=== PATIENT | male | born 1940 | race Caucasian/White ===

== ENCOUNTER 2019-11-18 14:31 | Observation (INO) | payer MEDICARE, SELFPAY ==
[2019-11-18] VITALS (10 sets, daily range): BP systolic 68–145; BP diastolic 54–85; PULSE 55–68; RESP 12–18; TEMP 36.4–37.1; O2SAT 96–100; BMI 31.5
--- NOTE | ~2019-11-18 | US_ITS ---
EXAMINATION: US carotid duplex BI DATE: 11/19/2019 08:07 INDICATION: Transient alteration of awareness. Cerebral atherosclerosis. TECHNIQUE: Grayscale, color Doppler, and pulsed Doppler images of the cervical carotid arteries were obtained. The degree of vessel stenosis is placed in one of the following categories: normal, <50%, 5 0-69%, >=70% but less than near-occlusion, near-occlusion, or total occlusion. Note that percent sten osis relative to normal distal artery lumen diameter is indirectly measured from velocity measurement s as described by Kennedy, et al. Radiology 2003; 229:340-346. COMPARISON: None. FINDINGS: RIGHT: The right common carotid artery (CCA) peak systolic velocity (PSV) is 87 cm/s. The right internal car otid artery (ICA) PSV is 67 cm/s. The right ICA end-diastolic velocity (EDV) is 22 cm/s. The right IC A/CCA PSV ratio is 0.8. Grayscale and color Doppler images and straight no appreciable stenosis or pl aque in the ICA. The external carotid artery (ECA) PSV is 113 cm/s. There is antegrade flow in the ri ght vertebral artery. LEFT: The left CCA PSV is 75 cm/s. The left ICA PSV is 85 cm/s. The left ICA EDV is 31 cm/s. The left ICA/C CA PSV ratio is 1.1. Grayscale and color Doppler images yield an estimate of <50% diameter reduction from plaque in the ICA. The ECA PSV is 90 cm/s. There is antegrade flow in the left vertebral artery. IMPRESSION: 1. No evident plaque or stenosis in the right internal carotid artery. 2. <50% stenosis in the left internal carotid artery. Reviewed, dictated and finalized at location A.
--- NOTE | ~2019-11-18 | CT_ITS ---
EXAMINATION: CT brain wo con INDICATION: Transient alteration of awareness, Parkinson's COMPARISON: None TECHNIQUE: Standard unenhanced head CT. The dose-length product (DLP) was 681.00 mGy-cm. The mA was a djusted according to patient size. Iterative reconstruction technique was employed. FINDINGS: There is no acute intraparenchymal hemorrhage. No evidence of mass lesion. No evidence of a cute infarction. Subtle, small areas of low attenuation in the bilateral basal ganglia may reflect pr ior infarction. There is mild periventricular and subcortical hypodensity probably related to small v essel ischemic disease. There is mild prominence of the sulci and ventricles related to cerebral atro phy. Intracranial calcified cerebral atherosclerosis is noted. There are no extra-axial collections. There is no mass effect or midline shift. The orbits and soft tissues are unremarkable. The visualiz ed sinuses and mastoid air cells are well aerated. IMPRESSION: 1. No acute intracranial abnormality. 2. Age related findings. Reviewed, dictated and finalized at location A.
--- NOTE | 2019-11-18 14:44 | ECG_ITS ---
Measurements Intervals [facility] Rate: 57 P: 11 OR: 151 QRS: -60 QRSD: 110 T: 26 QT: 388 QTc: 378 Interpretive Statements SINUS BRADYCARDIA LEFT AXIS DEVIATION INTRAVENTRICULAR CONDUCTION DELAY LEFT ANTERIOR FASCICULAR BLOCK BORDERLINE T WAVE ABNORMALITY- INF/LAT LEADS BASELINE ARTIFACT- I, II, III, AVR, AVL ABNORMAL ECG Electronically Signed On 11-18-2019 15:13:56 CDT by Jc Berumen D.O.
[2019-11-18 15:06] LABS: Basophils Percent Auto 0.3 % (0.2-1.2); Eosinophils Absolute Auto 0.1 K/mm3 (0-0.3); Eosinophils Percent Auto 1.9 % (0-4.4); Hematocrit 43.6 % (42.0-52.0); Hemoglobin 14.4 g/dL (14.0-18.0); Immature Granulocyte Absolute 0.04 K/mm3 (0.00-0.031); Immature Granulocyte Percent A 0.5 % (0-0.5); Lymphocytes Absolute Auto 1.38 K/mm3 (0.9-3.2); Lymphocytes Percent Auto 18.9 % (18.3-44.2); Mean Corpuscular Hemoglobin 31.4 pg (26-34); Mean Platelet Volume 9.3 fl (7.4-10.4); Monocytes Absolute Auto 0.9 K/mm3 (0.1-0.6); Monocytes Percent Auto 12.3 % (2.6-8.5); Neutrophils Absolute Auto 4.8 K/mm3 (1.3-6.7); Neutrophils Percent Auto 66.1 % (45.5-73.1); Platelet Count Result 201 k/mm3 (150-375); Red Blood Count 4.59 M/mm3 (4.6-6.20); Red Cell Distribution Width 13.6 % (11.5-14.5); White Blood Count 7.3 K/mm3 (4.5-10.0)
[2019-11-18 15:17] LABS: Blood Urea Nitrogen 18 mg/dL (9-20); Calcium 9.3 mg/dL (8.4-10.2); Carbon Dioxide 25 mmol/L (22-30); Chloride 100 mmol/L (98-107); Estimated CRCL calculation 49 ml/min; Estimated Glomerular Filt Rate 58; Glucose 130 mg/dL (75-110); Potassium 4.2 mmol/L (3.4-5.0); Sodium 133 mmol/L (137-145)
--- NOTE | 2019-11-18 16:15 | ED.SYNCOPE ---
HPI - Syncope General Chief Complaint: Syncope Stated Complaint: syncope Time Seen by Provider: 11/18/19 15:51 History of Present Illness HPI narrative: Patient presents via EMS and his for syncope at home. She was cutting his hair in a chair while they were watching TV, and he kept dropping his head and slumping over. She told him to hold his head up and sit up straight, but he slumped over and remained there. He says he woke up to EMS over him. There was no injury. No one needed to do CPR. He has Parkinson's and is getting more severe. He is having trouble walking and drags his feet. They tried increasing his levodopa from 6 times a day to 8 times a day and it did not seem to help. She usually has them on the treadmill for 10 minutes several times a week. He usually walks at the store, but he is less able to do so. He also has trouble sleeping and breaks his sleep cycle into several segments. His appetite is good. She denies that he has any depression. He denies any hallucinations or delusions. MD complaint: loss of consciousness Onset (ago): minute(s) -: minutes(s) Prodromal symptoms: none Witnessed: Yes - by Bystander Context: at rest Injuries sustained associated with event: none Current symptoms: none History: other (Parkinson's disease, orthostatic hypotension) Treatments prior to arrival: none Related Data Home Medications Medication Instructions Recorded Confirmed allopurinol 100 mg tablet 200 mg PO BID 05/25/19 carbidopa 25 mg-levodopa 100 mg 2 tablet PO TID 05/25/19 tablet ezetimibe 10 mg tablet 10 mg PO DAILY 05/25/19 omega-3 fatty acids 1,000 mg 1,000 mg PO DAILY 05/25/19 capsule timolol maleate 0.5 % eye gel 2 drop EACH EYE DAILY ml 05/25/19 forming solution travoprost 0.004 % eye drops 1 drop EACH EYE QPM 05/25/19 cholecalciferol (vitamin D3) 125 mcg PO DAILY 11/18/19 Allergies Allergy/AdvReac Type Severity Reaction Status Date / Time No Known Allergies Allergy Verified 05/25/19 14:25 Review of Systems Review of Systems: Narrative: CONSTITUTIONAL: Denies fever, chills, or sweats. EYES: Denies visual changes, redness, or discharge. ENT: Denies rhinorrhea, congestion, sore throat, or otalgia. CARDIOVASCULAR: Denies chest pain, palpitations, or edema. RESPIRATORY: Denies cough or dyspnea. GASTROINTESTINAL: Denies abdominal pain, nausea, vomiting, or diarrhea. GENITOURINARY: Denies dysuria or hematuria. SKIN: Denies rash or itching. MUSCULOSKELETAL: Denies back pain, joint pain, or myalgia. NEUROLOGIC: Denies headache, numbness, but has generalized weakness. Trouble sleeping. PSYCHIATRIC: Denies anxiety or depression. [facility] Past Medical History Medical History (Updated 11/18/19 @ 18:14 by Edith Sebastian MD) Autonomic orthostatic hypotension Bradycardia Mixed hyperlipidemia Parkinson disease Stage 3 chronic kidney disease Syncope and collapse Surgical History Surgical History (Updated 11/18/19 @ 16:21 by Edith Sebastian MD) Status post left foot surgery Social History Social History Smoking status: Never smoker Alcohol intake: never Exam Narrative: Exam Narrative: GENERAL: Well-appearing, well-nourished, and in no acute distress. Flat affect and no spontaneous motion. HEAD: Normocephalic, atraumatic. EYES: PERRLA and EOMI. ENT: Nares clear, no rhinorrhea or epistaxis. Mucous membranes moist. NECK: Supple. CHEST: Clear to auscultation. No respiratory distress. HEART: Regular rate and rhythm. No murmur heard. Normal peripheral pulses. ABDOMEN: Soft, nontender, nondistended, normal active bowel sounds. EXTREMITIES: Normal range of motion. Slight edema. SKIN: Warm, dry, no rash. NEURO: No focal deficits. Alert and oriented x3. PSYCH: Lets his do almost all the talking. Course Reevaluation(s) Reevaluation #1: Went in to talk to the patient and his . I told him that Dr. Gutierrez will consult i
[2019-11-18 16:57] LABS: Add Urine Microscopic? YES; Appearance Urine Clear (Clear); Bilirubin Urine Negative (Negative); Blood Urine Negative (Negative); Color Urine Yellow (Yellow); Glucose Urine UA Negative (Negative); Ketones Urine Trace mg/dL (Negative); Leukocyte Esterase Ur Negative LEU/UL (Negative); Mucus Urine Rare /lpf; Nitrate Urine Negative (Negative); Protein Urine Negative (Negative); RBC Urine 0-2 /hpf (0-2); Specific Grav Ur 1.016 (1.001-1.035); Urobilinogen Urine Negative mg/dL (<2.0); WBC Urine 0-3 /hpf
[2019-11-18 17:43] LABS: NT Pro B Type Natriuretic Pept 183 PG/ML (5-100); Troponin I < 0.012 ng/mL (0.000-0.034)
[2019-11-18] MEDS: CARBIDOPA/LEVODOPA 12.5/50 MG 1 TABLET, CARBIDOPA/LEVODOPA 25/100 MG 1 TABLET 2 TABLET PO (19:39)
[2019-11-18 20:14] LABS: Troponin I < 0.012 ng/mL (0.000-0.034)
--- NOTE | 2019-11-18 22:52 | ADMGEN ---
This patient, Zhang Mccullough, was admitted to [facility] Surg Room 312-01. Patient/family oriented to hospital policies and general routines including ID bracelet, bed and alarms, visiting hours, pain management, procedures, bathroom and other care routines, personal items, smoking policy, room service/diet, and visiting hours. Valuables list has been completed. Information on how to activate the Rapid Response Team has been discussed. Patient/Family are encouraged to report perceived risks to care and to ask questions if they do not understand what they are told or what they should do.
[2019-11-18 23:56] LABS: Troponin I < 0.012 ng/mL (0.000-0.034)
--- NOTE | 2019-11-19 02:31 | PM.IMHP ---
H&P: HPI History of Present Illness Chief complaint: syncope and parkinson's Narrative: This is an 79 year old male with known Parkinson's disease and previous episodes of syncope who passed out yesterday at home while his was cutting his hair. The patient remembers that his was cutting his hair and he suddenly passed out. He woke up to find EMS standing over him. He denies any chest pain or shortness of breath prior to passing out and his did not report any seizure like activity. He does not know how long he was unconscious for. He denies any loss of urine. He does report recent worsening of his Parkinson's symptoms. On my encounter with the patient myesha he has no complaints. He currently denies any headache, fevers, chills, shortness of breath, cough, chest pain, abdominal pain, dysuria, hematuria, rashes, nausea, vomiting, diarrhea or rectal bleeding. He reports that they have attempted to adjust his Parkinson's medications although he continues to have significant resting tremor and difficulty initiating movements and walking without shuffling. ER provider has consulted Neurology. Routine labs and CT brain were unremarkable in the ER. Review of Systems Review of Systems: All systems reviewed & are unremarkable except as noted in HPI and below PMFSH Past Medical History Medical History Autonomic orthostatic hypotension Bradycardia Mixed hyperlipidemia Parkinson disease Stage 3 chronic kidney disease Syncope and collapse Surgical History Surgical History Status post left foot surgery Family History Family History Mother Family history of chronic obstructive pulmonary disease Father Family history of lung cancer Patient's father is Sibling Family history of type 2 diabetes mellitus Social History Social History Smoking status: Never smoker Alcohol intake: never Substance use: never Gender identity (if verbalized by the patient): Male Spiritual care concerns: No Meds Home Medications and Allergies Home Medications Medication Instructions Recorded Confirmed Type allopurinol 100 mg tablet 200 mg PO DAILY 05/25/19 11/18/19 History carbidopa 25 mg-levodopa 100 mg 2 tablet PO TID 05/25/19 11/18/19 History tablet ezetimibe 10 mg tablet 10 mg PO HS 05/25/19 11/18/19 History omega-3 fatty acids 1,000 mg 1,000 mg PO DAILY 05/25/19 11/18/19 History capsule timolol maleate 0.5 % eye gel 2 drop LEFTEYE DAILY ml 05/25/19 11/18/19 History forming solution travoprost 0.004 % eye drops 1 drop LEFTEYE QPM 05/25/19 11/18/19 History cholecalciferol (vitamin D3) 125 mcg PO DAILY 11/18/19 11/18/19 History Allergies Allergy/AdvReac Type Severity Reaction Status Date / Time No Known Allergies Allergy Verified 05/25/19 14:25 Vital Signs Vital Signs - 24 hr 11/18/19 14:32 11/18/19 14:45 11/18/19 15:27 Temperature 37.1 C Pulse Rate 60 56 L 56 L Respiratory Rate 12 Blood Pressure 102/62 119/71 Pulse Oximetry 96 11/18/19 15:29 11/18/19 15:33 11/18/19 17:52 Temperature Pulse Rate 55 L 68 60 Respiratory Rate 16 Blood Pressure 107/68 68/54 L 125/85 Pulse Oximetry 99 11/18/19 18:54 11/18/19 19:54 11/18/19 21:07 Temperature 36.7 C 36.7 C Pulse Rate 68 68 68 Respiratory Rate 12 16 16 Blood Pressure 119/75 127/82 127/82 Pulse Oximetry 99 96 96 11/18/19 21:10 Temperature 36.4 C Pulse Rate 60 Respiratory Rate 18 Blood Pressure 145/72 H Pulse Oximetry 100 Exam Const: General: cooperative, alert, awake and other (Visibile resting tremor++ ) Nutritional Appearance: well nourished Orientation/consciousness: patient oriented x3 HENMT: Head: normal to inspection General nose exam: Normal external nose prese
[2019-11-19 02:32] LABS: Troponin I < 0.012 ng/mL (0.000-0.034)
--- NOTE | 2019-11-19 02:44 | ECHO_ITS ---
Patient Info Name: Zhang Mccullough Age: 79 years : 1940 Gender: Male Ht: 68 in Wt: 207 lbs BSA: 2.15 m2 HR: 68 bpm BP: 146 / 72 mmHg Technical Quality: Fair Exam Date: 11/19/2019 8:38 AM Exam Location: [facility] Exam Room: 312 Patient Status: Outpatient Admit Date: 11/18/2019 Staff Ordering Physician: Dangelo Lang MD Tile Molder Hand: Marcia Masters RDCS Attending Provider: Ben Sherman PA-C Referring Physician: Precious MORALES; Exam Type: CA echo doppler color flow Study Info Indications - SYNCOPE Complete two-dimensional, color flow and Doppler transthoracic echocardiogram is performed. Summary 1. Left ventricular chamber dimension is normal. 2. Left ventricular systolic function is normal, estimated at 60-65%. 3. The left ventricular diastolic function is grade I diastolic dysfunction. 4. E/e' 9 is minimally elevated. 5. There is mild aortic valve sclerosis. 6. There is mild aortic valve regurgitation. 7. No pulmonary hypertension, estimated pulmonary arterial systolic pressure is 29 mmHg. Left Ventricle E/e' 9 is minimally elevated. Left ventricular chamber dimension is normal. Left ventricular systolic function is normal, estimated at 60-65%. The left ventricular diastolic function is grade I diastolic dysfunction. Right Ventricle Right ventricular chamber dimension is normal. Right ventricular systolic function is normal. Left Atria Left atrial chamber dimension is normal. Right Atria Right atrial chamber dimension is normal. Aortic Valve The aortic valve is trileaflet. There is mild aortic valve sclerosis. There is no aortic valve stenosis. There is mild aortic valve regurgitation. Pulmonic Valve There is no pulmonic regurgitation. Mitral Valve There is no mitral valve stenosis. There is no mitral valve regurgitation. Tricuspid Valve There is no tricuspid valve regurgitation. No pulmonary hypertension, estimated pulmonary arterial systolic pressure is 29 mmHg. Pericardium/Pleural There is no pericardial effusion. Aorta The aortic root size at the sinus of Valsalva is normal. Left Ventricular Outflow Tract Name Value Normal LVOT 2D LVOT Diameter 2.1 cm LVOT Doppler LVOT Peak Gradient 3 mmHg LVOT Mean Gradient 2 mmHg LVOT VTI 21 cm LVOT VTI/AV VTI Ratio 0.7 LVOT Stroke Volume 75 ml LVOT CO 14.5 l/min LVOT CI 6.7 l/min/m2 Pulmonic Valve Name Value Normal PV Doppler PV Peak Gradient 2 mmHg Mitral Valve Name Value Normal
[2019-11-19 04:00] VITALS: PULSE 64
[2019-11-19 06:00] VITALS: BP 133/74; PULSE 57; RESP 16; TEMP 36.7; O2SAT 98
[2019-11-19 06:26] LABS: Basophils Percent Auto 0.3 % (0.2-1.2); Eosinophils Absolute Auto 0.2 K/mm3 (0-0.3); Eosinophils Percent Auto 2.3 % (0-4.4); Hematocrit 43.7 % (42.0-52.0); Hemoglobin 14.4 g/dL (14.0-18.0); Immature Granulocyte Absolute 0.02 K/mm3 (0.00-0.031); Immature Granulocyte Percent A 0.3 % (0-0.5); Lymphocytes Absolute Auto 1.75 K/mm3 (0.9-3.2); Lymphocytes Percent Auto 23.7 % (18.3-44.2); Mean Corpuscular Hemoglobin 31.2 pg (26-34); Mean Corpuscular Volume 94.8 fl (80-100); Mean Platelet Volume 9.7 fl (7.4-10.4); Monocytes Absolute Auto 1.1 K/mm3 (0.1-0.6); Monocytes Percent Auto 15.3 % (2.6-8.5); Neutrophils Absolute Auto 4.3 K/mm3 (1.3-6.7); Neutrophils Percent Auto 58.1 % (45.5-73.1); Platelet Count Result 210 k/mm3 (150-375); Red Blood Count 4.61 M/mm3 (4.6-6.20); Red Cell Distribution Width 13.6 % (11.5-14.5); White Blood Count 7.4 K/mm3 (4.5-10.0)
[2019-11-19 06:37] LABS: Blood Urea Nitrogen 18 mg/dL (9-20); Calcium 9.1 mg/dL (8.4-10.2); Carbon Dioxide 26 mmol/L (22-30); Chloride 103 mmol/L (98-107); Estimated CRCL calculation 49 ml/min; Estimated Glomerular Filt Rate 58; Glucose 90 mg/dL (75-110); Magnesium 1.8 mg/dL (1.6-2.3); Sodium 137 mmol/L (137-145)
[2019-11-19 08:00] VITALS: PULSE 62
[2019-11-19] MEDS: CHOLECALCIFEROL 1,000 UNIT TABLET 5000 UNITS PO (09:21)
[2019-11-19] MEDS: OMEGA 3 POLYUNSAT FATTY ACIDS 1 GM CAP PO (09:21)
[2019-11-19] MEDS: allopurinoL 100 MG TABLET 200 MG PO (09:22)
[2019-11-19] MEDS: CARBIDOPA/LEVODOPA 12.5/50 MG 1 TABLET, CARBIDOPA/LEVODOPA 25/100 MG 1 TABLET 2 TABLET PO ×2 (09:28→13:13)
--- NOTE | 2019-11-19 11:44 | PM.IMPN ---
Progress Note: A&P Assessment and Plan (1) Syncope and collapse: Code(s): R55 - Syncope and collapse Status: Acute Assessment and Plan: r/o Cardiogenic syncope vs. Autonomic dysfunction from Parkinson's disease - Telemetry grossly unremarkable; sinus without any alarms today. Patient abmulated well today during visit. fall precautions, Light IV hydration for now Check orthostatics. provides months worth of orthostatics from home which clearly shows orthostatic pressures Echocardiogram pending Carotid doppler U/S grossly unremarkable Recommended 30 day event monitor at discharge Mahad Handy ordered Consider d/c today or tomorrow pending Neuro input and Echo (2) Parkinson disease: Code(s): G20 - Parkinson's disease Status: Chronic Assessment and Plan: Continue Sinemet. Neurology has been consulted by ER provider. Appreciate Neurology input. (3) Stage 3 chronic kidney disease: Code(s): N18.3 - Chronic kidney disease, stage 3 (moderate) Status: Chronic Assessment and Plan: stable. Monitor renal function. Avoid nephrotoxic agents. (4) Mixed hyperlipidemia: Code(s): E78.2 - Mixed hyperlipidemia Status: Chronic Assessment and Plan: Continue ezetimibe. (5) Essential (primary) hypertension: Code(s): I10 - Essential (primary) hypertension Status: Chronic Assessment and Plan: BP 130s sys today. Patient taken off of BP medication in October given reasonable pressures and his orthostatic hypotension Monitor Subjective Date/time seen: 11/19/19 11:44 Interval history: Patient is a 79 yo M with history of known Parkinson's disease, pervious TIAs, and previous episodes of syncope who is here for evaluation of syncope and collapse. Today patient is asymptomatic. He was able to walk to the bathroom with minimal to no assistance. He has no complaints for me today. and patient anxious to be discharged. Denies f/c/s, myalgias/arthralgias, headaches, dizziness, lightheadedness particularly with standing, changes in v/h, cp/palpitations, sob/cough, n/v/d/c, abd pain, changes in BMs, dysuria, hematuria, cloudy urine, calf pain/swelling. Review of Systems Review of Systems: All systems reviewed & are unremarkable except as noted in HPI and below Exam Narrative: Exam Narrative: Patient sitting upright in bed at time of visit. in room visiting Const: General: cooperative, comfortable, no acute distress, well developed, alert, awake and other (Visibile resting tremor++ ) Nutritional Appearance: well nourished Orientation/consciousness: patient oriented x3 HENMT: Head: normocephalic and atraumatic General nose exam: Normal external nose present Face and sinus: normal facial exam Mouth: Yes moist mucous membranes Eyes: General: appearance normal, both eyes and all related structures EOM: EOMs intact bilaterally Neck: Neck: trachea midline and supple Resp: Effort & Inspection: normal respiratory effort Auscultation: clear to auscultation bilaterally Cardio: Rate: regular rate Rhythm: regular rhythm Heart sounds: no murmurs GI: Inspection: non-distended and obesity GI Palp: No abdominal tenderness and Yes Soft to palpation Auscultation: normal bowel sounds Skin: General skin exam: normal color and no rashes or lesions noted Neuro: General: patient oriented x3, moves all extremities and no focal motor deficits Cranial nerves: Yes CN's II-XII intact bilaterally and Yes Equal, round and reactive pupils present Speech: normal speech Gait exam (Neuro): Shuffling gait present Motor exam (neuro): 5/5 motor strength present throughout and Tremors during motor activity present Sensory Exam: normal sensation Extrem: General: normal to ins
[2019-11-19 12:00] VITALS: PULSE 69
--- NOTE | 2019-11-19 13:29 | PM.DS ---
DS: Admitting Diagnosis Admitting Diagnosis Admitting Diagnosis: Syncope and collapse DS: Discharge Diagnosis Discharge Diagnosis (1) Syncope and collapse: Code(s): R55 - Syncope and collapse Status: Acute Assessment and Plan: r/o Cardiogenic syncope vs. Autonomic dysfunction from Parkinson's disease - Telemetry grossly unremarkable; sinus without any alarms today. Patient abmulated well today during visit. Okay for discharge from Neuro standpoint; felt to be possibly seizure activity fall precautions, Light IV hydration for now Check orthostatics although provides months worth of orthostatics from home which clearly shows orthostatic pressures Echocardiogram results pending when patient discharged. Called patient after discharge and relayed the results to both the patient and . She states she will have the patient follow up with Dr. Varma and his PCP Carotid doppler U/S grossly unremarkable Recommended 30 day event monitor at discharge Neuro has recommended Brain MRI as outpatient and EEG as well. Keep Neuro appointment next week Mahad Handy ordered D/c today (2) Parkinson disease: Code(s): G20 - Parkinson's disease Status: Chronic Assessment and Plan: Continue Sinemet. Neurology has been consulted by ER provider. Appreciate Neurology input. (3) Stage 3 chronic kidney disease: Code(s): N18.3 - Chronic kidney disease, stage 3 (moderate) Status: Chronic Assessment and Plan: stable. Monitor renal function. Avoid nephrotoxic agents. (4) Mixed hyperlipidemia: Code(s): E78.2 - Mixed hyperlipidemia Status: Chronic Assessment and Plan: Continue ezetimibe. (5) Essential (primary) hypertension: Code(s): I10 - Essential (primary) hypertension Status: Chronic Assessment and Plan: BP 130s sys today. Patient taken off of BP medication in October given reasonable pressures and his orthostatic hypotension Monitor DS: Summary Hospital Course Reason for hospitalization: syncope Hospital Course: Patient is a 79 yo M with known Parkinson's and previous episodes of syncope who presented to the ER on 11/17 after he became unresponsive at home while his was cutting his hair. While in the ER, workup was grossly unremarkable, however, CVA was still of concern and ER provider spoke to Neurology who accepted that patient as consult for Parkinson's disease . Patient admitted under this setting. Please see H&P for further details. Presenting VS: Temp Pulse Resp BP Pulse Ox 98.7 F 60 12 102/62 96 11/18/19 14:32 11/18/19 14:32 11/18/19 14:32 11/18/19 14:32 11/18/19 14:32 Presenting Pertinent labs: CBC, chemistry, TSH, BNP, serial troponins, and UA were grossly unremarkable Micro: none Imaging: Head CT 11/18/19 17:04 IMPRESSION: 1. No acute intracranial abnormality. 2. Age related findings. Carotid Doppler Study 11/19/19 08:55 IMPRESSION: 1. No evident plaque or stenosis in the right internal carotid artery. 2. <50% stenosis in the left internal carotid artery. Echo 11/19/19 Summary 1. Left ventricular chamber dimension is normal. 2. Left ventricular systolic function is normal, estimated at 60-65%. 3. The left ventricular diastolic function is grade I diastolic dysfunction. 4. E/e' 9 is minimally elevated. 5. There is mild aortic valve sclerosis. 6. There is mild aortic valve regurgitation. 7. No pulmonary hypertension, estimated pulmonary arterial systolic pressure is 29 mmHg ECG: Interpretive Statements SINUS BRADYCARDIA LEFT AXIS DEVIATION INTRAVENTRICULAR CONDUCTION DELAY LEFT ANTERIOR FASCICULAR BLOCK BORDERLINE T WAVE ABNORMALITY- INF/LAT LEADS BASELINE ARTIFACT- I, II, III, AVR, AVL ABNORMAL ECG Patient wa
--- NOTE | 2019-11-19 14:00 | WPDNEURCNPN ---
Assessment and Plan Assessment and plan (1) Essential (primary) hypertension: Code(s): I10 - Essential (primary) hypertension Status: Chronic (2) Gout, unspecified: Code(s): M10.9 - Gout, unspecified Status: Acute (3) CHF (congestive heart failure): Qualifiers: Heart failure chronicity: unspecified Heart failure type: unspecified Qualified Code(s): I50.9 - Heart failure, unspecified Code(s): I50.9 - Heart failure, unspecified Status: Acute (4) Bradycardia: Code(s): R00.1 - Bradycardia, unspecified Status: Acute (5) Syncope and collapse: Code(s): R55 - Syncope and collapse Status: Acute (6) Autonomic orthostatic hypotension: Code(s): I95.1 - Orthostatic hypotension Status: Acute (7) Parkinson disease: Code(s): G20 - Parkinson's disease Status: Chronic (8) Mixed hyperlipidemia: Code(s): E78.2 - Mixed hyperlipidemia Status: Chronic (9) Stage 3 chronic kidney disease: Code(s): N18.3 - Chronic kidney disease, stage 3 (moderate) Status: Chronic (10) Parkinsons disease: Code(s): G20 - Parkinson's disease Status: Acute (11) Vitamin D deficiency: Code(s): E55.9 - Vitamin D deficiency, unspecified Status: Acute (12) Partial seizure with complex symptomatology: Code(s): R56.9 - Unspecified convulsions Status: Acute Additional Plan I discussed with his in detail about the etiology of his brain new spell and I felt that it was a partial complex seizure rather than being all related to his orthostatic hypertension not only because the patient was sitting but also the complex symptomatology described to me. I offered him to be on some seizure medication however since he does have an appointment with his established neurologist I think it will be appropriate for him to go ahead and see him next week and he certainly can order a brain MRI without contrast knowing his kidney issues and also an EEG all questions were answered to his said to him to their satisfaction Consult date: 11/19/19 Time Seen: 13:30 HPI: Zhang Mccullough is a 79 year old male he is right-handed and his is present at the time of the interview he was brought in because of a spell which to me sounds like a partial complex seizure his was cutting his hairs when all of a sudden he blacked out and when she looked at him he had a blank stare eyes were open and his speech was not comprehend double and he had a little saliva at the corner of his left side of the mouth his record from it in couple of minutes although he has had previous brief movement of loss of consciousness related to ongoing what sounds like orthostatic hypotension he never had a spell like this before the patient has Parkinson's disease of moderately severe degree and follows pretty closely by the neurologist Dr. KAUFMAN in [facility] patient's is pretty meticulous and she showed me the the chart she was supposed to keep for orthostatic hypotension but this episode happened while the patient was sitting for some time not standing in any event he is doing fairly well and he wants to go home and get the workup done as an outpatient his medications were reviewed and shared with his It is worth mentioning that the patient's memory has been failing in the past at least a year so and that needs to be addressed by his neurologist with whom he has a follow-up appointment coming next week Review of Systems Review of Systems: All systems reviewed & are unremarkable except as noted in HPI and below PMFSH Past Medical History Medical History Autonomic orthostatic hypotension Bradycardia Essential (primary) hypertension Glaucoma Gout, unspecified History of [place] (myocardial infarction) History of TIA (transient ischemic attack) Mixed hyperlipidemia Parkinson disease
== END 2019-11-19 15:20 | disposition home or self-care (01) ==
LOC: ANHED 19:57 → ANH3MEDSUR 20:29
PROVIDERS: Family Medicine; General Practice; Admitting Provider Family Medicine; Emergency Provider Emergency Medicine; PCP Family Medicine; Visit Provider Internal Medicine
DX: R55 Syncope and collapse (principal); G20 Parkinson's disease; I13.0 Hypertensive heart and chronic kidney disease with heart failure and stage 1 through stage 4 chronic kidney disease, or unspecified chronic kidney disease; N18.3 Chronic kidney disease, stage 3 (moderate); I50.9 Heart failure, unspecified; E78.2 Mixed hyperlipidemia; R56.9 Unspecified convulsions; R00.1 Bradycardia, unspecified; E55.9 Vitamin D deficiency, unspecified; M10.9 Gout, unspecified; I25.2 Old myocardial infarction; H40.9 Unspecified glaucoma; Z79.899 Other long term (current) drug therapy; Z90.5 Acquired absence of kidney; Z86.73 Personal history of transient ischemic attack (TIA), and cerebral infarction without residual deficits
CPT/HCPCS: 36415; 70450; 80048; 81001; 83735; 83880; 84443; 84484; 85025; 93005; 93306; 93880; 99285; A9270; G0378; Q9957

== ENCOUNTER 2020-02-18 12:55 | Outpatient (CLI) | payer MEDICARE, SELFPAY | END 2020-02-18 12:56 | disposition home or self-care (01) | LOC: ANHAUDIO 12:57 | PROVIDERS: PCP Family Medicine; Visit Provider Family Medicine | DX: H91.92 Unspecified hearing loss, left ear (principal); H91.91 Unspecified hearing loss, right ear | CPT/HCPCS: 92557; 92567 ==

== ENCOUNTER 2020-05-10 11:00 | Outpatient (RCR) | payer MEDICARE, SELFPAY ==
--- NOTE | 2020-04-06 17:31 | PTOPEVAL ---
PHYSICAL THERAPY EVALUATION AND PLAN OF CARE Thank you for referring José Miguel Mccullough to [facility].? The patient is scheduled to be seen for therapy? 1x/week for 4 weeks. Please review, sign, date and return this plan of care ANGY. I agree with and certify that the following plan of care is medically necessary. Referring Physician Date Attending Provider: Jose Luis Parker MD Evaluation Diagnosis Parkinson's Disease Onset 3.5years Subjective Information Has Parkinson's Disease and Query Text:As Reported By Patient/ tremor's have increased lately Family . He feels like he doing really well in general. Has an increased resting tremor and reports shuffling gait. reports he will slow his gait and start to lose his posture. 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 Reports that he is sleeping less and his back hurts when sleeping and when bending over to pick something up. Medications Home Meds: carbadopa,levadopa metadrin - blood pressure drops when stands or sits static for too long (wears support hose) Self Report Pain Assessment Spine, Lumbar Reported Pain Level 3 Pain Description Dull Pain Frequency Chronic,Intermittent Pain Aggravating Factors Weight Bearing/Standing Pain Behaviors None Pain Score Pain Score 3: Self Report Interventions Used Interventions Used By Clinicians Exercise Pain Relief Interventions Used By None Patient Other Alleviating Interventions avoids bending Balance Assessment Mariscal Balance Assessment 54/56 Time Up Go (TUG) Timed Up and Go Test (TUG) (Seconds) 10 Assistive Devices None 5 Time Sit to Stand Time in Seconds 12.04 Gait Pattern Assessment Shuffled Gait Other Gait Observations fair stride length, decreased arm swing and trunk swing - rigid through the trunk 6 Minute Walk Total Distance (feet) 1,287 6 Minute Walk Gait Speed Score (feet/ 3.57 second) 6 Minute Gait Comments increased tremor with more time PT Clinical Summary José Miguel is an 79 yo male presenting to outpatient
--- NOTE | 2020-05-03 10:43 | PCPTNOTE ---
Patient called & cancelled scheduled appointment this date due to foot pain.
--- NOTE | 2020-05-10 12:31 | PTOPEVAL ---
PHYSICAL THERAPY DISCHARGE NOTE Thank you for referring José Miguel Mccullough to [facility].? Please review, sign, date and return this plan of care ANGY. I agree with and certify that the following plan of care is medically necessary. Referring Physician Date Attending Provider: Jose Luis Parker MD Discharge Diagnosis Parkinson's Disease Onset 3.5years Subjective Information Has Parkinson's Disease and Query Text:As Reported By Patient/ tremor's have increased lately Family . Doing exercises very regularly. Noticing that he is feeling better over all and his is noting improved gait. 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 From Floor Independent/Safe Look Behind Shoulder - Standing Shifts Weight Well Turning 360 Degrees Turns Bilateral, < 4 secs Unsupported Stance, Alternating Feet on (I)- 8 Steps in 20 secs Stair Unsupported Tandem Stance Achieves Tandem Unilateral Leg Stance Lifts Leg/Holds > 3 secs MENDEZ Balance Evaluation Total Score (/56 54 points) Time Up Go (TUG) Timed Up and Go Test (TUG) (Seconds) 8 Assistive Devices None Comments 1month ago = 10seconds 5 Time Sit to Stand Time in Seconds 11.07 5 Time Sit to Stand Comments 1month ago = 12.54 Query Text:Normative Data: If Greater Than 15 Seconds, 74% Increase Risk for Recurrent Falls Functional Gait Assessment 28/30 Gait Assessment 6 Minute Walk Total Distance (feet) 1,287 6 Minute Walk Gait Speed Score (feet/ 3.57 second) 6 Minute Gait Comments increased tremor with more time walking with cognitive challenge does not change safety PT Clinical Summary José Miguel is an 79 yo male presenting to outpatient physical therapy with diagnosis of Parkinson's Disease with worsening sy
== END 2020-05-11 07:18 | disposition home or self-care (01) ==
LOC: ANHPT 11:00
PROVIDERS: PCP Family Medicine; Visit Provider Family Medicine
DX: M19.011 Primary osteoarthritis, right shoulder (principal); M19.012 Primary osteoarthritis, left shoulder; R27.0 Ataxia, unspecified; G20 Parkinson's disease
CPT/HCPCS: 97110; 97162